=== PATIENT | female | born 1950 | race Caucasian/White ===

== ENCOUNTER → 2016-12-12 | Outpatient (CLI) | payer OTHER, MEDICARE ==
[~2016-12-12] MED LIST: EVISTA; FLEXERIL PO; NAPROSYN500 MG PO; NORCO 5-325 TA1 EACH PO; ZOCOR 10 MG TAB10 MG; ZOLOFT25 MG
== END ==
LOC: RAD 04:06
DX: Z12.31 Encounter for screening mammogram for malignant neoplasm of breast (principal)

== ENCOUNTER → 2019-01-05 | Outpatient (CLI) | payer OTHER, MEDICARE | LOC: RAD 09:59 | DX: Z12.31 Encounter for screening mammogram for malignant neoplasm of breast (principal) ==

== ENCOUNTER → 2019-02-07 | Outpatient (CLI) | payer OTHER, MEDICARE | LOC: ULTRA 08:36 | DX: R92.2 Inconclusive mammogram (principal); Z88.2 Allergy status to sulfonamides; Z88.0 Allergy status to penicillin; Z88.8 Allergy status to other drugs, medicaments and biological substances; Z91.040 Latex allergy status ==

== ENCOUNTER → 2019-11-15 | Outpatient (CLI) | payer OTHER, MEDICARE | LOC: NUC 08:55 | PROVIDERS: ATTEND Family Medicine | DX: N91.2 Amenorrhea, unspecified (principal); Z78.0 Asymptomatic menopausal state ==

== ENCOUNTER → 2020-01-09 | Outpatient (CLI) | payer OTHER, MEDICARE | LOC: BC 07:58 | PROVIDERS: ATTEND Family Medicine | DX: Z12.31 Encounter for screening mammogram for malignant neoplasm of breast (principal) ==

== ENCOUNTER → 2020-07-23 | Outpatient (CLI) | payer OTHER, MEDICARE | LOC: ULTRA 09:47 | PROVIDERS: ATTEND Family Medicine | DX: M71.21 Synovial cyst of popliteal space [Baker], right knee (principal) ==

== ENCOUNTER → 2021-01-14 | Outpatient (CLI) | payer OTHER, MEDICARE | LOC: BC 09:09 | PROVIDERS: ATTEND Family Medicine | DX: Z12.31 Encounter for screening mammogram for malignant neoplasm of breast (principal) ==

== ENCOUNTER → 2021-02-01 | Outpatient (CLI) | payer OTHER, MEDICARE | LOC: SJCVCIMAG 11:54 | PROVIDERS: ATTEND Family Medicine | DX: E11.9 Type 2 diabetes mellitus without complications (principal) ==

== ENCOUNTER → 2021-02-26 | Outpatient (CLI) | payer OTHER, MEDICARE | LOC: NUC 10:08 | PROVIDERS: ATTEND Nurse Practitioner | DX: M85.88 Other specified disorders of bone density and structure, other site (principal) ==